=== PATIENT | female | born 1965 | race Caucasian/White ===

== ENCOUNTER → 2019-09-24 10:48 | Outpatient (CLI) | payer BC, SELFPAY ==
--- NOTE | ~2019-09-24 | MM_ITS ---
EXAMINATION: MM screening ed BI w kvng HISTORY: Screening mammogram TECHNIQUE: Craniocaudal and mediolateral oblique 3-D tomosynthesis images were obtained and synthetic 2-D images were generated. CAD analysis was submitted and interpreted. COMPARISON: 07/31/2018 bilateral digital screening mammogram 07/01/2017 diagnostic right digital mammogram and limited right breast ultrasound 06/13/2017 bilateral digital screening mammogram BREAST PARENCHYMAL COMPOSITION: The breasts are extremely dense, which lowers the sensitivity of mamm ography. FINDINGS: There is no evidence of suspicious mass, calcification, or architectural distortion to sugg est malignancy in either breast. There has been no suspicious interval change. IMPRESSION: 1. No mammographic evidence of malignancy. 2. Recommend routine screening mammography in one year. BI-RADS Category 1: Negative Reviewed, dictated and finalized at location A. [employer]
== END ==
PROVIDERS: PCP Family Medicine Adolescent Medicine; Visit Provider Family Medicine Adolescent Medicine
DX: Z12.31 Encounter for screening mammogram for malignant neoplasm of breast (principal)
CPT/HCPCS: 77063; 77067

== ENCOUNTER → 2020-11-05 10:12 | Outpatient (CLI) | payer BC, SELFPAY ==
--- NOTE | ~2020-11-05 | MM_ITS ---
EXAMINATION: MM screening ed BI w kvng HISTORY: Screening TECHNIQUE: Craniocaudal and mediolateral oblique 3-D tomosynthesis images were obtained and synthetic 2-D images were generated. CAD analysis was submitted and interpreted. COMPARISON: Comparison to multiple prior studies sequentially, with oldest reviewed study dated 04/26. BREAST PARENCHYMAL COMPOSITION: The breasts are heterogeneously dense, which may obscure small masses . FINDINGS: There is no evidence of suspicious mass, calcification, or architectural distortion to sugg est malignancy in either breast. There has been no suspicious interval change. IMPRESSION: 1. No mammographic evidence of malignancy. 2. Recommend routine screening mammography in one year. BI-RADS Category 1: Negative Reviewed, dictated and finalized at location A.
== END ==
PROVIDERS: PCP Family Medicine Adolescent Medicine; Visit Provider Physician Assistant
DX: Z12.31 Encounter for screening mammogram for malignant neoplasm of breast (principal)
CPT/HCPCS: 77063; 77067

== ENCOUNTER → 2022-01-25 08:43 | Outpatient (CLI) | payer BC, SELFPAY ==
--- NOTE | ~2022-01-25 | MM_ITS ---
EXAMINATION: MM screening ed BI w kvng HISTORY: Screening TECHNIQUE: Craniocaudal and mediolateral oblique 3-D tomosynthesis images were obtained and synthetic 2-D images were generated. CAD analysis was submitted and interpreted. COMPARISON: Comparison to multiple prior studies sequentially, with oldest reviewed study dated 05/27. BREAST PARENCHYMAL COMPOSITION: The breasts are heterogenously dense, which may obscure small masses FINDINGS: There is no evidence of suspicious mass, calcification, or architectural distortion to sugg est malignancy in either breast. There has been no suspicious interval change. IMPRESSION: 1. No mammographic evidence of malignancy. 2. Recommend routine screening mammography in one year. BI-RADS Category 1: Negative Reviewed, dictated and finalized at location A.
== END ==
PROVIDERS: PCP Family Medicine Adolescent Medicine; Visit Provider Family Medicine Adolescent Medicine
DX: Z12.31 Encounter for screening mammogram for malignant neoplasm of breast (principal)
CPT/HCPCS: 77063; 77067

== ENCOUNTER → 2022-05-21 09:37 | Outpatient (CLI) | payer BC, SELFPAY ==
--- NOTE | ~2022-05-21 | MR_ITS ---
EXAMINATION: MR brain IAC wo con DATE: 05/21/2022 10:25 INDICATION: Left-sided headache. Left-sided ptosis. Left periorbital swelling. TECHNIQUE: Magnetic resonance imaging (MRI) of the brain, brainstem, and internal auditory canals was performed without intravenous contrast. COMPARISON: None. FINDINGS: There is no intracranial hemorrhage, acute infarction, or abnormal intracranial mass lesion . The ventricles are normal. There is mild mucosal thickening in the ethmoid sinuses. The orbits are normal. The mastoid air cells are normal. IMPRESSION: 1. Normal brain. Reviewed, dictated and finalized at location A. IMPRESSION: 1. Normal brain.
== END ==
PROVIDERS: PCP Family Medicine Adolescent Medicine; Visit Provider Family Medicine Adolescent Medicine
DX: H02.402 Unspecified ptosis of left eyelid (principal); R51.9 Headache, unspecified
CPT/HCPCS: 70551

== ENCOUNTER 2022-06-06 01:46 | Day surgery (SDC) | payer BC, SELFPAY ==
[2022-05-30 09:50] VITALS: BMI 26.6
[2022-06-06 11:43] VITALS: BP 128/80; PULSE 55; RESP 18; TEMP 37.2; O2SAT 100; BMI 25.9
--- NOTE | 2022-06-06 11:58 | PM.HPGS ---
History of Present Illness History of Present Illness Consent: Risks, benefits, and alternatives have been discussed and questions answered. Patient agrees to proceed with procedure. Chief complaint: neoplasm screening Narrative: Rosana Davis is a 56 year old female Presents for screening colonoscopy. Patient's current weight appetite and bowel movements are normal. Patient denies abdominal pain. She has had no bleeding. Family history is noncontributory. Patient reports colonoscopy 10 years ago was unremarkable. Review of Systems Review of Systems: Review of systems noncontributory. [facility] Surgical History Surgical History History of tonsillectomy and adenoidectomy Hx of appendectomy Hx of breast biopsy x3 left Hx of total hysterectomy Family History Family History Mother Hypertension Breast cancer Grandparent Cerebrovascular accident Hypertension Other Family history of malignant neoplasm of male breast Social History Social History Smoking status: Never smoker Alcohol intake: current Alcohol use details: rare occasional use Substance use: never Substance use type: does not use Living arrangements: with family Spiritual care concerns: No Meds Home Medications and Allergies Home Medications Medication Instructions Recorded Confirmed Type omeprazole 20 mg capsule,delayed 20 mg PO BID #60 caps 04/24/22 05/30/22 Rx release rosuvastatin 10 mg tablet 10 mg PO DAILY #90 tabs 04/25/22 05/30/22 Rx sodium,potassium,mag sulfates 17.5 See Rx Instructions PO .COMPLEX 05/09/22 05/30/22 Rx gram-3.13 gram-1.6 gram oral soln #354 mL (Suprep Bowel Prep Kit) biotin 2,500 mcg capsule 2,500 mcg PO DAILY 05/30/22 05/30/22 History elderberry fruit 200 mg capsule 200 mg PO DAILY 05/30/22 05/30/22 History multivitamin with minerals 1 tablet PO DAILY 05/30/22 05/30/22 History Allergies Allergy/AdvReac Type Severity Reaction Status Date / Time codeine Allergy Unknown Unknown Verified 05/30/22 10:15 Contrast Media Allergy Unknown Unknown Uncoded 05/30/22 10:15 Exam Narrative: Physical exam reveals patient to be alert. Vital signs stable. HEENT exam is unremarkable. Patient is anicteric. Lungs are clear to auscultation and percussion. Heart is without murmur or extra sounds. Abdomen bowel sounds present soft nontender with no organomegaly. Digital external rectal exam is normal. Assessment and Plan Assessment and plan (1) Encounter for screening colonoscopy: Code(s): Z12.11 - Encounter for screening for malignant neoplasm of colon Status: Acute Assessment and Plan: Patient presents for screening colonoscopy. She appears to be at average risk for colon polyps. Further recommendations may be given after endoscopy.
[2022-06-06] MEDS: LACTATED RINGERS 1,000 ML 150 ML IV CONT (12:16)
--- NOTE | 2022-06-06 12:32 | P.PNAN_ITS ---
Anes - Initial Pre Proc Eval Procedure: Operation Date: 06/06/22 13:00 Proposed Procedures p Screening Colonoscopy - Jonathan Felix MD Date/Time: 06/06/22 12:32 Surgeon: Jonathan Felix MD Pre Op Diagnosis: neoplasm screening Patient Data Age: 56 Gender: F Height: 1.68 m Weight: 73 kg Last Vital Signs Temp 37.2 C 06/06/22 11:43 Pulse 55 L 06/06/22 11:43 Resp 18 06/06/22 11:43 BP 128/80 06/06/22 11:43 Pulse Ox 100 06/06/22 11:43 Allergies Allergy/AdvReac Type Severity Reaction Status Date / Time codeine Allergy Unknown Unknown Verified 05/30/22 10:15 Contrast Media Allergy Unknown Unknown Uncoded 05/30/22 10:15 Home Medications Medication Instructions Recorded Confirmed Type omeprazole 20 mg capsule,delayed 20 mg PO BID #60 caps 04/24/22 05/30/22 Rx release rosuvastatin 10 mg tablet 10 mg PO DAILY #90 tabs 04/25/22 05/30/22 Rx sodium,potassium,mag sulfates 17.5 See Rx Instructions PO .COMPLEX 05/09/22 05/30/22 Rx gram-3.13 gram-1.6 gram oral soln #354 mL (Suprep Bowel Prep Kit) biotin 2,500 mcg capsule 2,500 mcg PO DAILY 05/30/22 05/30/22 History elderberry fruit 200 mg capsule 200 mg PO DAILY 05/30/22 05/30/22 History multivitamin with minerals 1 tablet PO DAILY 05/30/22 05/30/22 History Patient hx anesthesia problems: none Family hx anesthesia problems: none Results Review: All pre-operative results and documents have been reviewed as part of the pre- operative evaluation. [facility] Surgical History Surgical History History of tonsillectomy and adenoidectomy Hx of appendectomy Hx of breast biopsy x3 left Hx of total hysterectomy Family History Family History Mother Hypertension Breast cancer Grandparent Cerebrovascular accident Hypertension Other Family history of malignant neoplasm of male breast Social History Social History Smoking status: Never smoker Alcohol intake: current Alcohol use details: rare occasional use Substance use: never Substance use type: does not use Living arrangements: with family Spiritual care concerns: No Anes - Eval Final PreProcedure Day of Procedure 06/06/22 12:32 Patient weight: normal Heart: regular rate and rhythm Lungs: clear to auscultation Airway: Mallampati scale class 1 Neurological: alert and oriented Last oral intake: >/= 8 hours ASA classification: II Emergent: no Anesthetic plan: proceed Anesthesia type and monitoring: general GIVS and standard monitoring Results Review: All pre-operative results and documents have been reviewed as part of the pre- operative evaluation. Informed Consent: The patient's anesthetic plan and its attendant risks and benefits were discussed with the patient/family/POA. Questions were solicited and answers provided to the satisfaction of the patient/family/POA.
[2022-06-06 13:05] VITALS: BP 130/63; PULSE 74; RESP 22; O2SAT 99
[2022-06-06 13:15] VITALS: BP 127/55; PULSE 68; RESP 17; O2SAT 100
[2022-06-06 13:25] VITALS: BP 120/62; PULSE 66; RESP 19; O2SAT 100
== END 2022-06-06 13:35 | disposition home or self-care (01) ==
PROVIDERS: PCP Family Medicine Adolescent Medicine; Visit Provider Internal Medicine Gastroenterology
PROC: 0DJD8ZZ Inspection of Lower Intestinal Tract, Via Natural or Artificial Opening Endoscopic (ICD-10-PCS; CPT 45378; principal; 2022-06-06 13:00)
DX: Z12.11 Encounter for screening for malignant neoplasm of colon (principal); K64.8 Other hemorrhoids
CPT/HCPCS: 45378; J2704; J7120

== ENCOUNTER → 2023-05-16 09:47 | Outpatient (CLI) | payer BC, SELFPAY ==
--- NOTE | ~2023-05-16 | MM_ITS ---
EXAMINATION: MM screening [facility] BI w kvng HISTORY: Screening mammogram TECHNIQUE: Craniocaudal and mediolateral oblique 3-D tomosynthesis images were obtained and synthetic 2-D images were generated. CAD analysis was submitted and interpreted. COMPARISON: 01/25/2022, 11/05/2020, 09/24/2019, 07/31/2018 BREAST PARENCHYMAL COMPOSITION:The breasts are extremely dense, which lowers the sensitivity of mammo graphy. FINDINGS: No suspicious mass, calcification, or architectural distortion are identified in either tacho ast to suggest malignancy. There has been no suspicious interval change. IMPRESSION: No mammographic evidence of malignancy. Recommend routine screening mammography in one year. BI-RADS Category 1: Negative Reviewed, dictated and finalized at location .
== END ==
PROVIDERS: PCP Family Medicine Adolescent Medicine; Visit Provider Family Medicine Adolescent Medicine
DX: Z12.31 Encounter for screening mammogram for malignant neoplasm of breast (principal)
CPT/HCPCS: 77063; 77067

== ENCOUNTER 2024-06-07 07:36 | Outpatient (CLI) | payer BC, SELFPAY ==
--- NOTE | ~2024-06-07 | MM_ITS ---
EXAMINATION: MM screening ed BI w kvng HISTORY: Screening mammogram, family history of breast cancer in her mother. TECHNIQUE: Craniocaudal and mediolateral oblique 3-D tomosynthesis images were obtained and synthetic 2-D images were generated. CAD analysis was submitted and interpreted. COMPARISON: 05/15/2023, 01/25/2022, 11/05/2020, 09/24/2019 BREAST PARENCHYMAL COMPOSITION:Dense: The breasts are extremely dense, which lowers the sensitivity o f mammography. FINDINGS: No suspicious mass, calcification, or architectural distortion are identified in either tacho ast to suggest malignancy. There has been no suspicious interval change. IMPRESSION: No mammographic evidence of malignancy. Recommend routine screening mammography in one year. BI-RADS Category 1: Negative Reviewed, dictated and finalized at location . [employer]
== END 2024-06-07 07:37 | disposition home or self-care (01) ==
PROVIDERS: PCP Family Medicine Adolescent Medicine; Visit Provider Nurse Practitioner Family
DX: Z12.31 Encounter for screening mammogram for malignant neoplasm of breast (principal)
CPT/HCPCS: 77063; 77067